=== PATIENT | female | born 1975 | race African-American/Black ===

== ENCOUNTER 2019-05-23 09:55 | Outpatient (CLI) | payer BC ==
--- NOTE | 2019-05-23 15:39 | ULT ---
ULTRASOUND PELVIS DOPPLER DUPLEX: 05/23/19 HISTORY: 43-year-old female with ICD-10: D25.9, uterine leiomyoma, unspecified location. TECHNIQUE: Transabdominal transition used to evaluate intrapelvic contents with massey scale, color flow and spect ral analysis. FINDINGS: Uterus measures 12.5 x 6.5 x 6 cm. Endometrial stripe is approximately 0.3 cm (3 mm) poorly visualized. There is an approximately 6.5 x 6 x 6 cm well circumscribed isoechoic solid mass in the right side of the pelvis, which appears to be attached to the right lateral serosal surface of the uterus by what appears to be a 1.5 cm stalk. There is a thin crescent of fluid surrounding the mass. A normal right ovary is not visualized. There is no free fluid in the cul-de-sac identified. The left ovary is 3 x 2 .5 x 2 cm, with blood flow demonstrated. IMPRESSION: 1. 6.5 cm solid mass in the right pelvis. It is uncertain whether this is a pedunculated uterine leiomyoma (fibroid) arising from the right side of the uterine fundus, or a right ovarian mass. 2. Pelvic MRI with and without contrast, or pelvic CT with contrast, may be useful for further e valuation. POS: [facility]
== END 2019-05-23 09:56 | disposition home or self-care (01) ==
LOC: BURULT 09:55
PROVIDERS: ATTEND Physician Assistant
DX: D25.9 Leiomyoma of uterus, unspecified (principal); R19.00 Intra-abdominal and pelvic swelling, mass and lump, unspecified site
CPT/HCPCS: 76856